=== PATIENT | male | born 1935 ===

== ENCOUNTER → 2017-10-18 | Outpatient (CLI) | payer OTHER ==
[~2017-10-18] MED LIST: IOPAMIDOL (ISOVUE 370) 100 ML BTL IV ONE
== END ==
LOC: FIMAGING 08:00
PROVIDERS: ATTEND Surgery
DX: I71.01 Dissection of thoracic aorta (principal); K57.30 Diverticulosis of large intestine without perforation or abscess without bleeding
CPT/HCPCS: 71275; 74174; Q9967

== ENCOUNTER → 2017-12-02 | Outpatient (CLI) | payer OTHER | LOC: BHLMT 10:30 | PROVIDERS: ATTEND Nurse Practitioner Family | DX: I71.00 Dissection of unspecified site of aorta (principal); I10 Essential (primary) hypertension; I25.10 Atherosclerotic heart disease of native coronary artery without angina pectoris; I71.4 Abdominal aortic aneurysm, without rupture | CPT/HCPCS: 93005-PO ==